=== PATIENT | female | born 1950 | race Caucasian/White ===

== ENCOUNTER 2021-01-07 12:06 | Inpatient (IN) | payer MEDICARE, OTHER ==
[~2021-01-07] VITALS: Ht 165.1 cm; Wt 79.8 kg
[2021-01-07 12:28] LABS: BASOPHILS % (AUTO) 1.3 % (0.0-5.0); EOSINOPHILS % (AUTO) 0.3 % (0.0-8.0); HEMATOCRIT 38.3 % (36-48); LYMPHOCYTES % (AUTO) 40.9 % (21.0-51.0); MEAN CORPUSCULAR HEMOGLOBIN 30.1 pg (27.0-33.0); MEAN CORPUSCULAR HGB CONC 34.5 g/dL (32.0-36.0); MEAN CORPUSCULAR VOLUME 87.2 fL (79-99); MONOCYTES % (AUTO) 5.5 % (3.0-13.0); NEUTROPHILS % (AUTO) 50.4 % (40.0-77.0); PLATELET COUNT (AUTO) 168 K/uL (130-400); RED BLOOD CELL COUNT(AUTO) 4.39 MIL/uL (4.00-5.50); RED CELL DISTRIBUTION WIDTH 14.4 % (11.0-15.5); WHITE BLOOD COUNT (AUTO) 7.1 K/uL (4.8-10.8)
[2021-01-07] MEDS ORDERED: ACETAMINOPHEN WITH CODEINE 1 TAB TAB PO SCH (12:30)
[2021-01-07] MEDS ORDERED: IPRATROPIUM/ALBUTEROL SULFATE 3 ML SOLUTION IH SCH (12:30)
[2021-01-07 12:40] LABS: CREATININE 0.9 mg/dL (0.5-1.5); POTASSIUM 4.5 mmol/L (3.5-5.1)
[2021-01-07 12:41] LABS: APPEARANCE,URINE Clear (CLEAR); BILIRUBIN,URINE Negative (NEGATIVE); COLOR,URINE Yellow (YELLOW); GLUCOSE, URINE (UA) Negative (NEGATIVE); KETONES,URINE Negative (NEGATIVE); LEUKOCYTE ESTERASE ,URINE Small (NEGATIVE); NITRATE,URINE Negative (NEGATIVE); OCCULT BLOOD,URINE Negative (NEGATIVE); PROTEIN,URINE Negative (NEGATIVE)
[2021-01-07 12:47] LABS: ALBUMIN 2.9 g/dL (3.5-5.0); B-TYPE NATRIURETIC PEPTIDE 38 pg/mL (0-100); BILIRUBIN,TOTAL 0.5 mg/dL (0.2-1.0); CRP QUANTITATIVE 86.2 mg/L (0.00-9.0); TOTAL PROTEIN, SERUM 7.1 g/dL (6.0-8.3)
[2021-01-07 12:56] LABS: BACTERIA,URINE Rare /HPF (None Seen); RBC,URINE 0-1 /HPF (0-1); WBC,URINE 0-1 /HPF (0-1)
[2021-01-07 12:57] LABS: SQUAMOUS EPITHELIAL CELL,UR Rare /HPF (0-2)
[2021-01-07] MEDS ORDERED: 0.9%NACL 1000ML 1,000 ML IV SCH ×3 (13:00→16:30)
[2021-01-07] MEDS ORDERED: ACETAMINOPHEN 325 MG TAB PO PRN (16:30)
[2021-01-07] MEDS ORDERED: BENZOCAINE/MENTH/CETYLPYRD CL 1 EACH LOZENGE MM PRN (16:30)
[2021-01-07] MEDS ORDERED: AZITHROMYCIN 500MG VIAL IVPB SCH (16:30)
[2021-01-07] MEDS ORDERED: 0.9% NACL 250ML IV ONE (16:30)
[2021-01-07] MEDS ORDERED: CEFTRIAXONE 1G VIAL IVP ONE (16:30)
[2021-01-07] MEDS ORDERED: 0.9% NACL 250ML IVPB SCH (16:30)
[2021-01-07] MEDS ORDERED: DOXYCYCLINE 100MG+NS 250ML IV ONE (16:30)
[2021-01-07 17:03] LABS: CHLORIDE,URINE RANDOM 35 mmol/L (110-250); POTASSIUM,URINE RANDOM 27 mmol/L (25-125); SODIUM,URINE RANDOM 33 mmol/l (40-220)
[2021-01-07 17:09] LABS: CREATININE 0.8 mg/dL (0.5-1.5); POTASSIUM 3.8 mmol/L (3.5-5.1)
[2021-01-07 17:38] LABS: CREATININE,URINE RANDOM 10 mg/dL (30-135); SODIUM,URINE RANDOM < 14 mmol/l (40-220)
[2021-01-07] MEDS: AZITHROMYCIN 500MG+NS 250ML 250 ML IV SCH (17:38)
[2021-01-07] MEDS ORDERED: LEVOTHYROXINE (17:43)
[2021-01-07] MEDS ORDERED: PANT40TA54 PO (17:43)
[2021-01-07] MEDS: BENZOCAINE/MENTH/CETYLPYRD CL 1 EACH LOZENGE MM PRN (17:59)
[2021-01-07] MEDS: FAMOTIDINE 20MG VIAL IV SCH (20:28)
[2021-01-07 21:44] VITALS: BP 155/80
[2021-01-07] MEDS: ONDANSETRON 4MG INJ IV PRN (22:09)
[2021-01-07] MEDS: ACETAMINOPHEN 325 MG TAB PO PRN (22:10)
[2021-01-07 23:41] VITALS: BP 110/54
[2021-01-08 04:00] VITALS: BP 110/67
[2021-01-08 05:32] LABS: BASOPHILS % (AUTO) 1.8 % (0.0-5.0); EOSINOPHILS % (AUTO) 0.3 % (0.0-8.0); HEMATOCRIT 36.5 % (36-48); LYMPHOCYTES % (AUTO) 55.3 % (21.0-51.0); MEAN CORPUSCULAR HEMOGLOBIN 29.5 pg (27.0-33.0); MEAN CORPUSCULAR HGB CONC 33.7 g/dL (32.0-36.0); MEAN CORPUSCULAR VOLUME 87.5 fL (79-99); MONOCYTES % (AUTO) 6.3 % (3.0-13.0); NEUTROPHILS % (AUTO) 34.9 % (40.0-77.0); PLATELET COUNT (AUTO) 156 K/uL (130-400); RED BLOOD CELL COUNT(AUTO) 4.17 MIL/uL (4.00-5.50); RED CELL DISTRIBUTION WIDTH 14.6 % (11.0-15.5); WHITE BLOOD COUNT (AUTO) 7.3 K/uL (4.8-10.8)
[2021-01-08 05:49] LABS: CREATININE 0.9 mg/dL (0.5-1.5); MAGNESIUM 2.1 mg/dL (1.80-2.40); PHOSPHORUS 3.7 mg/dL (2.5-4.9); POTASSIUM 4.7 mmol/L (3.5-5.1); URIC ACID 2.7 mg/dL (2.6-7.2)
[2021-01-08] MEDS: ACETAMINOPHEN 325 MG TAB PO PRN ×2 (06:37→21:15)
[2021-01-08 07:00] VITALS: BP 128/61
[2021-01-08] MEDS ORDERED: 0.9% NACL 250ML 250 ML ONE (08:09)
[2021-01-08] MEDS: AZITHROMYCIN 500MG+NS 250ML 250 ML IV SCH (08:43)
[2021-01-08] MEDS: CEFTRIAXONE 1G VIAL IVP SCH (08:43)
[2021-01-08] MEDS: FAMOTIDINE 20MG VIAL IV SCH ×2 (08:44→21:15)
[2021-01-08] MEDS ORDERED: ENOXAPARIN SODIUM 30 MG/0.3 ML SQ SCH (09:00)
[2021-01-08 11:00] VITALS: BP 93/47
[2021-01-08] MEDS ORDERED: DOCUSATE SODIUM 100 MG CAP PO PRN (13:30)
[2021-01-08 15:12] LABS: CHOLESTEROL 143 mg/dL (<200); HDL CHOLESTEROL 28 mg/dL (35-85); LDL DIRECT 83 mg/dL (0-99); TRIGLYCERIDES 166 mg/dL (30-200)
[2021-01-08 15:41] LABS: APPEARANCE,URINE Clear (CLEAR); BILIRUBIN,URINE Negative (NEGATIVE); COLOR,URINE Yellow (YELLOW); GLUCOSE, URINE (UA) Negative (NEGATIVE); KETONES,URINE Negative (NEGATIVE); LEUKOCYTE ESTERASE ,URINE Trace (NEGATIVE); NITRATE,URINE Negative (NEGATIVE); OCCULT BLOOD,URINE Negative (NEGATIVE); PROTEIN,URINE Negative (NEGATIVE)
[2021-01-08 15:55] LABS: BACTERIA,URINE Rare /HPF (None Seen); MUCUS,URINE Few LPF (None Seen); SQUAMOUS EPITHELIAL CELL,UR Rare /HPF (0-2)
[2021-01-08 16:00] VITALS: BP 134/66
[2021-01-08 20:00] VITALS: BP 127/69
[2021-01-09] VITALS: BP 111/65
[2021-01-09 04:00] VITALS: BP 112/67
[2021-01-09 05:10] LABS: HEMATOCRIT 35.8 % (36-48); MEAN CORPUSCULAR HEMOGLOBIN 29.1 pg (27.0-33.0); MEAN CORPUSCULAR HGB CONC 33.8 g/dL (32.0-36.0); MEAN CORPUSCULAR VOLUME 86.1 fL (79-99); RED BLOOD CELL COUNT(AUTO) 4.16 MIL/uL (4.00-5.50); RED CELL DISTRIBUTION WIDTH 14.6 % (11.0-15.5); WHITE BLOOD COUNT (AUTO) 7.1 K/uL (4.8-10.8)
[2021-01-09 05:54] LABS: ALBUMIN 2.4 g/dL (3.5-5.0); BILIRUBIN,TOTAL 0.4 mg/dL (0.2-1.0); CREATININE 0.7 mg/dL (0.5-1.5); POTASSIUM 3.6 mmol/L (3.5-5.1); TOTAL PROTEIN, SERUM 6.1 g/dL (6.0-8.3)
[2021-01-09 07:53] VITALS: BP 115/65
[2021-01-09] MEDS ORDERED: 0.9% NACL 250ML 250 ML ONE (08:41)
[2021-01-09] MEDS: CEFTRIAXONE 1G VIAL IVP SCH (08:52)
[2021-01-09] MEDS: AZITHROMYCIN 500MG+NS 250ML 250 ML IV SCH (08:52)
[2021-01-09] MEDS: FAMOTIDINE 20MG VIAL IV SCH ×2 (08:53→20:31)
[2021-01-09] MEDS: ENOXAPARIN SODIUM 40 MG/0.4 ML SYRINGE SQ SCH (08:54)
[2021-01-09] MEDS: ACETAMINOPHEN 325 MG TAB PO PRN ×2 (08:55→20:32)
[2021-01-09] MEDS: SODIUM BICARBONATE 650 MG TAB PO SCH ×2 (10:44→20:32)
[2021-01-09 11:47] VITALS: BP 101/57
[2021-01-09] MEDS ORDERED: POLYETHYLENE GLYCOL 3350 17 GM POWD.PACK PO PRN (14:00)
[2021-01-09 16:00] VITALS: BP 108/58
[2021-01-09 20:20] VITALS: BP 125/65
[2021-01-09] MEDS: ONDANSETRON 4MG INJ IV PRN (20:31)
[2021-01-09] MEDS: BENZOCAINE/MENTH/CETYLPYRD CL 1 EACH LOZENGE MM PRN (20:32)
[2021-01-10 00:10] VITALS: BP 111/65
[2021-01-10] MEDS: BENZOCAINE/MENTH/CETYLPYRD CL 1 EACH LOZENGE MM PRN (03:43)
[2021-01-10 04:41] VITALS: BP 116/62
[2021-01-10 05:29] LABS: CREATININE 0.7 mg/dL (0.5-1.5); POTASSIUM 3.9 mmol/L (3.5-5.1)
[2021-01-10] MEDS: ACETAMINOPHEN 325 MG TAB PO PRN (06:17)
[2021-01-10 08:00] VITALS: BP 102/59
[2021-01-10] MEDS ORDERED: 0.9% NACL 250ML 250 ML ONE (08:25)
[2021-01-10] MEDS: AZITHROMYCIN 500MG+NS 250ML 250 ML IV SCH (08:31)
[2021-01-10] MEDS: CEFTRIAXONE 1G VIAL IVP SCH (08:31)
[2021-01-10] MEDS: FAMOTIDINE 20MG VIAL IV SCH (08:32)
[2021-01-10] MEDS: SODIUM BICARBONATE 650 MG TAB PO SCH (08:32)
[2021-01-10] MEDS: ENOXAPARIN SODIUM 40 MG/0.4 ML SYRINGE SQ SCH (08:33)
[2021-01-10 12:13] VITALS: BP 96/61
[2021-01-10] MEDS ORDERED: SODIUM CHLORIDE 1,000 MG TAB PO SCH ×2 (12:30)
[2021-01-10] MEDS ORDERED: AZIT500T4 PO (15:36)
[2021-01-10 16:03] VITALS: BP 132/72
== END 2021-01-10 18:30 | disposition home or self-care (01) | DRG 194 ==
LOC: EDH 12:06 → EDHIP 16:15 → OBSVTOIN 16:15 → INTOOBSV 16:15 → 3DH 20:12
PROVIDERS: ADMIT Internal Medicine; ATTEND Internal Medicine
DX: J15.9 Unspecified bacterial pneumonia (principal); E22.2 Syndrome of inappropriate secretion of antidiuretic hormone; E87.8 Other disorders of electrolyte and fluid balance, not elsewhere classified; E86.9 Volume depletion, unspecified; E03.9 Hypothyroidism, unspecified; Z20.822 Contact with and (suspected) exposure to COVID-19; Z96.653 Presence of artificial knee joint, bilateral; M19.90 Unspecified osteoarthritis, unspecified site; I11.9 Hypertensive heart disease without heart failure; E87.6 Hypokalemia; D64.9 Anemia, unspecified; N28.9 Disorder of kidney and ureter, unspecified; Z59.00 Homelessness unspecified; Z87.01 Personal history of pneumonia (recurrent); Z87.440 Personal history of urinary (tract) infections; Z91.81 History of falling
CPT/HCPCS: 36415; 71275; 74018; 80048; 80051; 80053; 80061; 81001; 82533; 82570; 82607; 83690; 83735; 83880; 83930; 83935; 84100; 84145; 84300; 84443; 84484; 84550; 85025; 85027; 85651; 86038; 86140; 86215; 86235; 86334; 86431; 86606; 86612; 86635; 86698; 86738; 87040; 87088; 87449; 87635; 87804; 93005; 93306; 93356; 94640; C9803; G0378; J0456; J0696; J1650; J2405; J3490; J7050